=== PATIENT | female | born 1985 | race Caucasian/White ===

== ENCOUNTER 2017-10-17 10:05 | Emergency (ER) | payer OTHER ==
[~2017-10-17] VITALS: Ht 152.4 cm; Wt 56.0 kg
[~2017-10-17 10:05] MED LIST: CEPH500C3 PO; [UNRECOGNIZED DRUG - CODE] PV
[2017-10-17 10:22] VITALS: BP 127/60; PULSE 96; RESP 17; TEMP 98.2; O2SAT 100
--- NOTE | 2017-10-17 12:33 | PD ---
HPI . Abdominal pain Chief Complaint: Abdominal Pain Time Seen by Provider: 12:09 Travel History International Travel<30 days: No Contact w/Intl Traveler<30days: No Traveled to known affect area: No History of Present Illness HPI This patient presents stating that she is about 16 weeks and that she has been having right lower quadrant abdominal pain. The onset of the pain was a week or 2 ago. She reports no exacerbating factor but states that it is relieved by lying in the right lateral incision. She rates the pain at 5/10. In addition, she has a poor appetite and occasional emesis. Those have been ongoing symptoms as well. She denies fever. She denies diarrhea. She has not yet had any care. She does report positive movement. PFSH Past Medical History ?: Social History Alcohol Use: No Tobacco Use: Yes (half pack per day throughout ) Allergies-Medications Reported Meds & Prescriptions Reported Meds & Active Scripts Active Keflex (Cephalexin Monohydrate) 500 Mg Cap 500 Mg PO TID Terazol 7 (Terconazole) 0.4 % Cre 1 Applic PV HS Review of Systems Except as stated in HPI: all other systems reviewed are Neg Physical Exam Narrative GENERAL: Awake and alert and in no acute distress. SKIN: warm/dry. HEAD: Normocephalic. Atraumatic. EYES: Pupils equal and round. Extraocular movements are intact. ENT: Mucous membranes pink and moist. NECK: Supple. Full range of motion without pain.. CARDIOVASCULAR: Regular rate and rhythm. RESPIRATORY: No accessory muscle use. Normal respiratory rate and saturations. GASTROINTESTINAL: Gravid to at least the umbilicus and probably about 2 cm above the umbilicus. The uterus is soft and nontender. She has tenderness in the right suprapubic area MUSCULOSKELETAL: No obvious deformities. Normal muscle tone. NEUROLOGICAL: Awake and alert. No obvious cranial nerve deficits. Motor grossly within normal limits. Normal speech. PSYCHIATRIC: Appropriate mood and affect; insight and judgment normal. Data Data Last Documented VS Vital Signs Date Time Temp Pulse Resp B/P (MAP) Pulse Ox O2 Delivery O2 Flow Rate FiO2 10/17/17 10:22 98.2 96 17 127/60 (82) 100 Orders Orders Beta Hcg (Quant/Titer) (10/17/17 10:24) Urinalysis - C+S If Indicated (10/17/17 10:41) Ed Poc Ultrasound (10/17/17 10:42) Complete Blood Count With Diff (10/17/17 12:27) Labs Laboratory Tests Test 10/17/17 10:34 10/17/17 11:25 White Blood Count 10.3 TH/MM3 Red Blood Count 4.04 MIL/MM3 Hemoglobin 12.6 GM/DL Hematocrit 37.2 % Mean Corpuscular Volume 92.2 FL Mean Corpuscular Hemoglobin 31.3 PG Mean Corpuscular Hemoglobin Concent 33.9 % Red Cell Distribution Width 13.3 % Platelet Count 193 TH/MM3 Mean Platelet Volume 10.3 FL Neutrophils (%) (Auto) 59.8 % Lymphocytes (%) (Auto) 30.1 % Monocytes (%) (Auto) 7.1 % Eosinophils (%) (Auto) 2.6 % Basophils (%) (Auto) 0.4 % Neutrophils # (Auto) 6.2 TH/MM3 Lymphocytes # (Auto) 3.1 TH/MM3 Monocytes # (Auto) 0.7 TH/MM3 Eosinophils # (Auto) 0.3 TH/MM3 Basophils # (Auto) 0.0 TH/MM3 CBC Comment DIFF FINAL Differential Comment Human Chorionic Gonadotropin, Quant 4900 MIU/ML Urine Color LIGHT-YELLOW Urine Turbidity CLEAR Urine pH 6.0 Urine Specific [place] 1.007 Urine Protein NEG mg/dL Urine Glucose (UA) NEG mg/dL Urine Ketones NEG mg/dL Urine Occult Blood NEG Urine Nitrite NEG Urine Bilirubin NEG Urine Urobilinogen LESS THAN 2.0 MG/DL Urine Leukocyte Esterase NEG Urine RBC LESS THAN 1 /hpf Urine WBC 1 /hpf Urine Squamous Epithelial Cells 7 /hpf Urine Bacteria OCC /hpf Urine Mucus FEW /lpf Microscopic Urinalysis Comment CULT NOT INDICATED MDM Medical Decision Making Medical Screen Exam Complete: Yes Emergency Medical Condition: Yes Differential Diagnosis Differential diagnosis includes ectopic , round ligament pain, kidney stone, appendicitis Narrative Course This patient presents stating that she is 16 weeks and is having right lower quadrant abdominal pain. Onset was a week or so ago. Abdominal exam shows a gravid uterus to at or above the umbilicus. The uterus is soft. She is tender in the right suprapubic area. Quantitative hCG was 4900. This would be low for a 16 week IUP. CBC and UA are pending. This patient reports right lower quadrant abdominal pain which has been ongoing for more than a week. If she has a normal white blood count, I will not pursue any further evaluation. If her white blood count is elevated, I will order an ultrasound. CBC Diagram 10/17/17 10:34 UA is negative for infection. This patient has a low likelihood of an acute abdominal or pelvic problem. She is able to ambulate to the bathroom without any apparent pain. She has normal white blood count. She has an IUP visible on bedside ultrasound with positive movement and normal heart tones. She will be discharged home with instructions to follow-up with an annealing operator. She most likely has round ligament pain. Procedures Procedure Narrative Emergency Department Pelvic ultrasound was performed with patient consent. The curvilinear probe was used in the transverse and sagittal views within the suprapubic region revealing positive intrauterine . heart rate was 152. Positive movement. Diagnosis Primary Impression: Pelvic pain Additional Impression: Qualified Codes: Z3A.22 - 22 weeks gestation of Patient Instructions: Abdominal Pain in (ED), General Instructions Additional Instructions: Follow-up with an annealing operator Disposition: 01 DISCHARGE HOME Condition: Stable Dayana Vera MD Oct 17, 2017 12:33
[2017-10-17 12:37] LABS: AUTOMATED NEUTROPHIL # 6.2 TH/MM3 (1.8-7.7); BASOPHIL % 0.4 % (0.0-2.0); EOSINOPHIL # 0.3 TH/MM3 (0-0.4); EOSINOPHIL % 2.6 % (0.0-4.0); HEMATOCRIT 37.2 % (35.0-46.0); HEMOGLOBIN 12.6 GM/DL (11.6-15.3); LYMPH % 30.1 % (9.0-44.0); LYMPHOCYTE # 3.1 TH/MM3 (1.0-4.8); MEAN CELL VOLUME 92.2 FL (80.0-100.0); MEAN CORPUSCULAR HEMOGLOBIN 31.3 PG (27.0-34.0); MEAN CORPUSCULAR HGB CONC 33.9 % (32.0-36.0); MEAN PLATELET VOLUME 10.3 FL (7.0-11.0); MONO % 7.1 % (0.0-8.0); MONOCYTE # 0.7 TH/MM3 (0-0.9); NEUT % 59.8 % (16.0-70.0); PLATELET COUNT 193 TH/MM3 (150-450); RED BLOOD COUNT 4.04 MIL/MM3 (4.00-5.30); RED CELL DISTRIBUTION WIDTH 13.3 % (11.6-17.2); WHITE BLOOD COUNT 10.3 TH/MM3 (4.0-11.0)
[2017-10-17 13:05] LABS: BACTERIA, URINE OCC /hpf; BILIRUBIN, URINE NEG (NEG); BLOOD, URINE NEG (NEG); GLUCOSE,URINE NEG (NEG); KETONE, URINE NEG (NEG); MUCUS URINE FEW /lpf (OCC); NITRITE,URINE NEG (NEG); SQUAMOUS EPITHELIAL CELL URINE 7 /hpf (0-5); URINE COLOR LIGHT-YELLOW (YELLW/STRAW); URINE LEUKOCYTE ESTERASE NEG (NEG)
[2017-10-17 13:39] VITALS: BP 118/64
== END 2017-10-17 13:42 | disposition home or self-care (01) ==
LOC: NEPD 10:05
DX: O26.892 Other specified pregnancy related conditions, second trimester (principal); R10.2 Pelvic and perineal pain; O99.332 Smoking (tobacco) complicating pregnancy, second trimester; Z3A.22 22 weeks gestation of pregnancy
CPT/HCPCS: 81001; 84702; 85025; 99283